=== PATIENT | male | born 1995 | race Asian ===

== ENCOUNTER 2017-03-04 17:12 | Inpatient (IN) | payer OTHER ==
[~2017-03-04] VITALS: Ht 167.6 cm; Wt 55.6 kg
[2017-03-04] MEDS ORDERED: PIPER-TAZO 3.375 GM IV (PMX) 100 ML IVPB STA (18:29)
[2017-03-04] MEDS ORDERED: VANCOMYCIN 1 GM (PMX) 250 ML IVPB ONE (18:30)
[2017-03-04 19:22] LABS: ADD SCAN DIFF NO
[2017-03-04 19:23] LABS: BASOPHILS % 0.3 % (0.0-2.0); EOSINOPHILS # 0.2 10^3/ul (0.0-0.5); EOSINOPHILS % 1.7 % (0.0-7.0); HEMATOCRIT 51.1 % (42.0-52.0); LYMPHOCYTES # 2.3 10^3/ul (0.8-2.9); LYMPHOCYTES % 20.1 % (18.0-55.0); MEAN CORPUSCULAR HEMOGLOBIN 29.9 pg (29.0-33.0); MEAN CORPUSCULAR HGB CONC 33.3 g/dl (32.0-37.0); MEAN PLATELET VOLUME 9.6 fl (7.4-10.4); MONOCYTE # 0.9 10^3/ul (0.3-0.9); MONOCYTES % 7.5 % (0.0-13.0); NEUTROPHIL # 7.8 10^3/ul (1.6-7.5); NEUTROPHILS % 69.2 % (30.0-74.0); PLATELET COUNT 274 10^3/UL (140-415); RED BLOOD COUNT 5.68 10^6/ul (4.70-6.10); RED CELL DISTRIBUTION WIDTH 10.9 % (11.5-14.5); WHITE BLOOD COUNT 11.3 10^3/ul (4.8-10.8)
[2017-03-04] MEDS ORDERED: AMOX1TAB9 PO (19:25)
[2017-03-04] MEDS ORDERED: MUPI15CR9 TOP (19:25)
[2017-03-04] MEDS ORDERED: IBUP800T25 PO (19:26)
[2017-03-04 20:06] LABS: POTASSIUM 3.9 mmol/L (3.5-5.1)
[2017-03-04 20:09] LABS: CALCIUM 9.6 mg/dl (8.4-10.2); CREATININE 0.66 mg/dl (0.61-1.24)
[2017-03-04] MEDS ORDERED: ONDANSETRON 4 MG INJ IV PRN (20:30)
[2017-03-04] MEDS ORDERED: ACETAMINOPHEN 325 MG TAB PO PRN ×2 (20:30→23:30)
[2017-03-04] MEDS ORDERED: SOD CHLORIDE 0.9% 1,000 ML IV ONE (20:30)
--- NOTE | 2017-03-04 20:46 | ERD ---
ER Documentation Chief Complaint Date/Time DATE: 03/04/17 TIME: 20:44 Chief Complaint LEFT SHOULDER ABSCESS TO LEFT SHOULDER HPI Is a 21-year-old male presents for painful redness and skin defect to his left shoulder. This is been going on for a couple weeks now and is getting worse. He has failed outpatient treatment with Bactrim followed by Augmentin. He has no history of immunosuppression is supposedly up-to-date on his vaccinations and does not have diabetes. He has had no fevers currently. ROS All systems reviewed and are negative except as per history of present illness. Medications Home Meds Reported Medications Ibuprofen* (Ibuprofen*) 800 Mg Tab, 800 MG PO Q8H Y for PAIN, TAB 03/04/17 Mupirocin Calcium* (Mupirocin*) 2% - 15 Gram Cream..g., 1 APPLIC TOP DAILY, #1 TUB 03/04/17 Amoxicillin/Potassium Clav (Amox-Clav 500-125 mg Tablet) 500-125 mg Tab, 1 TAB PO TID for 30 Days, TAB 03/04/17 Allergies Allergies: Coded Allergies: No Known Allergy (Unverified , 03/04/17) PMhx/Soc Medical and Surgical Hx: pt denies Medical Hx, pt denies Surgical Hx History of Surgery: No Anesthesia Reaction: No Hx Neurological Disorder: No Hx Respiratory Disorders: No Hx Cardiac Disorders: No Hx Psychiatric Problems: No Hx Miscellaneous Medical Probl: No Hx Alcohol Use: No Hx Substance Use: No Hx Tobacco Use: No Smoking Status: Never smoker Physical Exam Vitals Vital Signs Date Time Temp Pulse Resp B/P Pulse Ox O2 Delivery O2 Flow Rate FiO2 03/04/17 17:14 98.3 100 18 124/75 98 Physical Exam Const: [] No distress Eyes: Normal Conjunctiva ENT: Normal External Ears, Nose and Mouth. Neck: Full range of motion..~ No meningismus. Resp: Clear to auscultation bilaterally Cardio: Regular rate and rhythm, no murmurs Abd: Soft, non tender, non distended. Normal bowel sounds Skin: No petechiae or rashes Ext: No cyanosis, left shoulder with approximately 4 x 4 centimeter area of skin defect with purulent material. There is also approximately 2 cm of surrounding erythema and calor. Distal pulses are intact. Patient has minimal skin pain on movement of shoulder motion with no impingement of full range of motion. Is also a white creamy substance in the family states they applied a cream. Neur: Awake and alert and oriented 3, no focal deficits Psych: Normal Mood and Affect Result Diagram: 03/04/17184803/04/171848 Results 24 hrs Laboratory Tests Test 03/04/17 18:49 White Blood Count 11.310^3/ul Red Blood Count 5.6810^6/ul Hemoglobin 17.0g/dl Hematocrit 51.1% Mean Corpuscular Volume 90.0fl Mean Corpuscular Hemoglobin 29.9pg Mean Corpuscular Hemoglobin Concent 33.3g/dl Red Cell Distribution Width 10.9% Platelet Count 95261^3/UL Mean Platelet Volume 9.6fl Neutrophils % 69.2% Lymphocytes % 20.1% Monocytes % 7.5% Eosinophils % 1.7% Basophils % 0.3% Nucleated Red Blood Cells % 0.0/100WBC Neutrophils # 7.810^3/ul Lymphocytes # 2.310^3/ul Monocytes # 0.910^3/ul Eosinophils # 0.210^3/ul Basophils # 0.010^3/ul Nucleated Red Blood Cells # 0.010^3/ul Sodium Level 143mmol/L Potassium Level 3.9mmol/L Chloride Level 98mmol/L Carbon Dioxide Level 29mmol/L Anion Gap 20 Blood Urea Nitrogen 10mg/dl Creatinine 0.66mg/dl Glucose Level 87mg/dl Calcium Level 9.6mg/dl Current Medications Medications (Trade) Dose Ordered Sig/Danyelle Route PRN Reason Start Time Stop Time Status Last Admin Dose Admin Vancomycin HCl 250 ml @ 125 mls/hr ONCE ONCE IVPB 03/04/17 18:30 03/04/17 20:29 DC Piperacillin Sod/ Tazobactam Sod 100 ml @ 200 mls/hr ONCE STAT IVPB 03/04/17 18:29 03/04/17 18:58 DC 03/04/17 19:46 Sodium Chloride (NS) 1,000 ml @ 1,000 mls/hr Q1H ONCE IV 03/04/17 20:30 03/04/17 21:29 Ondansetron HCl (Zofran Inj) 4 mg BRIDGE ORDER PRN IV NAUSEA AND/OR VOMITING 03/04/17 20:30 03/05/17 20:29 Acetaminophen (Tylenol Tab) 650 mg ER BRIDGE PRN PO MILD PAIN/FEVER 03/04/17 20:30 03/05/17 20:29 Procedures/MDM This serious shoulder infection that is failed outpatient treatment was appropriate with 2 different antibiotics. Infection is already expanding on deep tissue. The child may be admitted for IV antibiotics and will prevent limb dysfunction or loss or progression to sepsis. He was given vancomycin and Zosyn the emergency room as well as a liter of IV fluid. Currently appears well and there are no signs of sepsis. Spoke with Dr. Farr who will be admitting the suggested a CT to look for any joint involvement. There was none on the physical exam currently but I have ordered this study as it is a good idea. CT of left shoulder with contrast: Pending, please see report Departure Diagnosis: Primary Impression: Abscess Additional Impressions: Cellulitis of left arm Failure of outpatient treatment Condition: TIBURCIO Espana DO March 04, 2017 20:46
[2017-03-04] MEDS ORDERED: IOHEXOL 300MG/ML 150 ML BTL ONE (20:58)
[2017-03-04] MEDS ORDERED: SOD CHLORIDE 0.9% 100 ML ONE (20:58)
--- NOTE | 2017-03-04 21:55 | RADRPT ---
PROCEDURE: CT left shoulder with contrast CLINICAL INDICATION: Deep shoulder abscess, check for joint involvement. TECHNIQUE: A CT of the left shoulder was performed with intravenous contrast. 85 cc Omnipaque-300 were administered intravenously without complication. Coronal and sagittal reformats were generate d. CTDIvol: 22.36 mGy. DLP: 433.14 mGy-cm. COMPARISON: None. FINDINGS: There is a skin defect overlying the acromion process. Diffuse skin thickening and subcutaneous fat infiltration are noted along the shoulder. The underlying muscular structures have a normal CT harini earance. No soft tissue gas or abscess is identified. No shoulder joint effusion is identified. The re is no cortical lucency or periosteal reaction to suggest osteomyelitis. No fracture or dislocatio n is seen. Bone mineralization is normal and there is no suspicious osseous lesion. IMPRESSION: 1. Skin defect overlying the acromion process. 2. Diffuse skin thickening and subcutaneous fat infiltration along the shoulder, possibly representi ng cellulitis. 3. No CT evidence of abscess, necrotizing fasciitis, osteomyelitis, or a joint effusion. 4. The left shoulder soft tissues could be further evaluated with contrast enhanced MRI if clinicall y warranted. RPTAT: HTAR .Harlan Segovia MD, Date Time Electronically viewed and signed by .Harlan Segovia MD, on 03/04/2017 21:55 .R/
[2017-03-04 23:14] VITALS: Ht 167.6 cm; Wt 55.6 kg
[2017-03-04] MEDS ORDERED: VANCOMYCIN IV PER PHARMACY XX SCH (23:30)
[2017-03-04] MEDS ORDERED: ZOLPIDEM 5 MG TAB PO PRN (23:30)
[2017-03-04] MEDS ORDERED: HYDROCODONE/APAP (5/325) TAB PO PRN (23:30)
[2017-03-04 23:49] VITALS: BP 136/80; PULSE 70; RESP 18
[2017-03-05] MEDS: PIPER-TAZO 3.375 GM IV (PMX) 100 ML IVPB SCH ×3 (00:31→11:34)
[2017-03-05 06:12] LABS: ADD SCAN DIFF NO
[2017-03-05] MEDS: VANCOMYCIN 1 GM in NS 250 ML IVPB SCH ×3 (06:15→22:38)
[2017-03-05 06:19] LABS: BASOPHILS % 0.3 % (0.0-2.0); EOSINOPHILS # 0.4 10^3/ul (0.0-0.5); HEMATOCRIT 46.6 % (42.0-52.0); HEMOGLOBIN 15.3 g/dl (14.0-18.0); LYMPHOCYTES # 3.3 10^3/ul (0.8-2.9); MEAN CORPUSCULAR HEMOGLOBIN 29.8 pg (29.0-33.0); MEAN CORPUSCULAR HGB CONC 32.8 g/dl (32.0-37.0); MEAN CORPUSCULAR VOLUME 90.7 fl (72.0-104.0); MEAN PLATELET VOLUME 9.7 fl (7.4-10.4); MONOCYTE # 1.2 10^3/ul (0.3-0.9); MONOCYTES % 9.8 % (0.0-13.0); NEUTROPHIL # 7.1 10^3/ul (1.6-7.5); NEUTROPHILS % 58.3 % (30.0-74.0); PLATELET COUNT 239 10^3/UL (140-415); RED BLOOD COUNT 5.14 10^6/ul (4.70-6.10); RED CELL DISTRIBUTION WIDTH 10.8 % (11.5-14.5); WHITE BLOOD COUNT 12.2 10^3/ul (4.8-10.8)
[2017-03-05 06:47] LABS: ALBUMIN 3.6 g/dl (3.3-4.9); ALBUMIN/GLOBULIN RATIO 1.24; CALCIUM 9.1 mg/dl (8.4-10.2); CREATININE 0.72 mg/dl (0.61-1.24); POTASSIUM 4.1 mmol/L (3.5-5.1); TOTAL PROTEIN 6.5 g/dl (6.1-8.1)
[2017-03-05 07:41] VITALS: BP 110/56; RESP 16
--- NOTE | 2017-03-05 18:25 | HP ---
DATE OF ADMISSION: 03/04/2017 CHIEF COMPLAINT ON ADMISSION: Left shoulder wound. HISTORY OF PRESENT ILLNESS: This is a 21-year-old male who was in his usual state of health until r ecently when he started having a pimple on his left shoulder area. The patient did pop the pimple. Subsequently, it got infected and started showing signs of cellulitis and also with edema and possi edna an abscess formation. He went to a clinic approximately 5 days ago this past Thursday. He was seen there, started on Bactrim, and had incision and drainage of the cellulitic area with abscess. The patient stayed on Bactrim and 48 hours later he did follow up at the clinic this past Thursday and at that time, he was found to have purulent discharge from the wound. The wound was again cleaned. His antibiotics were changed to Augmentin at that time. The patient was maintained on Augmentin. He still noted purulent discharge from it and pictures were taken, and definitely he had some purul ence and tissue that was again cleaned on Thursday at urgent care. At that time, he was told to stay on Augmentin. There was still significant purulent discharge and necrotic tissue noted when celeste solano followed up on Thursday at the urgent care. At that time, they directed him to the emergency dep artment for IV antibiotics and further evaluation. In the ER, the patient was started on vancomycin and Zosyn. His white count was slightly elevated a t 11.2. Due to concern for deep tissue infection, he was admitted to a medical/surgical bed. He chavarria s been started on IV vancomycin and Zosyn at this point. The wound has been cleaned. It looks antony n currently. He had a CAT scan of the left shoulder and there are no pockets of abscess left. It h as been draining at this point. Wound care is ordered. His antibiotics will be adjusted to vancomy arlen and Levaquin, which would cover for MRSA and other gram-negatives and anaerobes. Wound culture was taken in the emergency department apparently and also at the urgent care. We will follow up on the urgent care wound culture and the emergency department for further antibiotic adjustment, but it is my suspicion that the patient will need at least MRSA coverage with vancomycin. He is afebrile. No nausea, no vomiting. He is doing fairly well clinically. The cellulitic area on the left shou lder wound is decreased. There is less tenderness to palpation and it looks much better according t o the patient and his family. ALLERGIES: NO KNOWN ALLERGIES. PAST MEDICAL HISTORY: None. PAST SURGICAL HISTORY: None. SOCIAL HISTORY: The patient lives with his family. He just moved to the [place] recently fro the [facility]. He does not smoke, drink alcohol or use any drugs. REVIEW OF SYSTEMS: As per HPI. The patient denies any other systemic symptoms. He denies any card iopulmonary, genitourinary or neurological deficits. OUTPATIENT MEDICATIONS: Prior to admission, the patient was on: 1. Augmentin 1 tab p.o. t.i.d. 2. Ibuprofen 800 mg p.o. q.8h. p.r.n. pain. 3. Mupirocin. PHYSICAL EXAMINATION: VITAL SIGNS: Temperature is 98.2, heart rate is 58 to 100, blood pressure 110/56, the patient is sa turating 96% on room air. GENERAL: He is alert and oriented x4. He is not in acute distress. He is doing really well. HEENT: Pupils are equally round and reactive to light. Extraocular muscles are intact. Anicteric sclerae. NECK: No JVD, no thyromegaly noted. HEART: Regular rate and rhythm. No murmur. No murmur, rubs or gallops. LUNGS: Clear to auscultation bilaterally. ABDOMEN: Soft, nontender, nondistended. Bowel sounds are present. EXTREMITIES: No edema, clubbing or cyanosis. SKIN: Left shoulder area, he does have a 2 x 2 cm open wound which was recently debrided. There ar e no signs of purulence currently. It has been just cleaned. The margins of the wound are less eryt hematous, less edematous at this point. It has been improving according to the family. The area of the incision and debridement is probably again 2 x 2 cm with 0.5 cm depth at most. LABORATORY DATA: White blood cell count 12.2, hemoglobin 15.3, hematocrit 46.6, platelet count of 2 39. Chemistry with a sodium of 140, potassium 4.1, chloride 105, bicarbonate 26, BUN 10, creatinin e 0.72, calcium of 9.1. LFTs are within normal. Cholesterol 102, LDL 65. IMAGING: CAT scan of the left shoulder with contrast did show skin defect overlying the acromial pr ocess which is the area that was debrided, diffuse skin thickening and subcutaneous fat infiltration along the shoulder consistent with cellulitis. No CT evidence of abscess, necrotizing fasciitis, o steomyelitis or joint effusion. ASSESSMENT AND PLAN: This is a 21-year-old with: 1. Left shoulder wound status post incision and debridement at a local clinic. Actually, the the [facility] area looks pretty healthy currently post-cleaning the wound. Continue IV antibiotics. Wound ca re has been ordered for further recommendation. We are waiting on the cultures. For now, keep him on vancomycin and Levaquin and I already have discussed with the family the possibility of putting a PICC line for IV vancomycin as my suspicion is this may be MRSA. It would be beneficial for the pa tient to remain on IV antibiotics given the wound that he has. 2. Prophylaxis. The patient is tolerating p.o. well. He is ambulatory. DISPOSITION: Follow up on wound cultures, adjust antibiotics as needed. Hopefully, discharge plann ing in the next 48 hours. Dictated By: JESSY MCGRAW/TARA Conf#: [id number] DID#: [id number]
[2017-03-05] MEDS: LEVOFLOXACIN 750MG/D5W (PMX) 150 ML IVPB SCH (18:48)
[2017-03-05 20:14] VITALS: BP 121/78; RESP 17
[2017-03-06 06:03] LABS: ADD SCAN DIFF NO
[2017-03-06] MEDS: VANCOMYCIN 1.25 GM in SOD CHLORIDE 0.9% 250 ML IVPB SCH ×2 (06:08→14:54)
[2017-03-06 06:10] LABS: BASOPHIL # 0.1 10^3/ul (0.0-0.1); BASOPHILS % 0.5 % (0.0-2.0); EOSINOPHILS # 0.3 10^3/ul (0.0-0.5); EOSINOPHILS % 2.4 % (0.0-7.0); HEMATOCRIT 47.5 % (42.0-52.0); HEMOGLOBIN 16.1 g/dl (14.0-18.0); LYMPHOCYTES % 26.1 % (18.0-55.0); MEAN CORPUSCULAR HEMOGLOBIN 30.4 pg (29.0-33.0); MEAN CORPUSCULAR HGB CONC 33.9 g/dl (32.0-37.0); MEAN CORPUSCULAR VOLUME 89.6 fl (72.0-104.0); MEAN PLATELET VOLUME 9.1 fl (7.4-10.4); MONOCYTE # 1.1 10^3/ul (0.3-0.9); MONOCYTES % 9.6 % (0.0-13.0); NEUTROPHIL # 6.8 10^3/ul (1.6-7.5); NEUTROPHILS % 59.1 % (30.0-74.0); PLATELET COUNT 257 10^3/UL (140-415); RED CELL DISTRIBUTION WIDTH 10.8 % (11.5-14.5); WHITE BLOOD COUNT 11.4 10^3/ul (4.8-10.8)
[2017-03-06 06:49] LABS: CALCIUM 9.6 mg/dl (8.4-10.2); CREATININE 0.7 mg/dl (0.61-1.24); POTASSIUM 3.8 mmol/L (3.5-5.1)
[2017-03-06 07:52] VITALS: BP 103/62; RESP 18
[2017-03-06] MEDS ORDERED: LIDOCAINE 1% (MPF) 5 ML VIAL SC ONE (14:30)
--- NOTE | 2017-03-06 14:34 | PN ---
Date/Time of Note Date/Time of Note DATE: 03/06/17 TIME: 14:09 Assessment/Plan VTE Prophylaxis VTE Prophylaxis Intervention: ambulation, SCD's Lines/Catheters IV Catheter Type (from Nrsg): Saline Lock Assessment/Plan Assessment/Plan 21-year-old with: 1. Left shoulder wound status post incision and debridement at a local clinic. Wound care recommendation noted Will discharge home with Home Health wound care and home health for IV abx today Follow up on wound cultures as outpatient, but given severity of infection will d/c home with home health and wound care and also IV abx PICC line ordered Prophylaxis: The patient is tolerating p.o. well. He is ambulatory. DISPOSITION: Follow up on wound cultures, d/c home with Home health for wound care and IV abx. Subjective 24 Hr Interval Summary Free Text/Dictation Patient remains stable and will plan from d/c home with Iv Vanco and po Levaquin x 10 days Exam/Review of Systems Vital Signs Vitals Vital Signs Date Time Temp Pulse Resp B/P Pulse Ox O2 Delivery O2 Flow Rate FiO2 03/06/17 07:52 98.7 61 18 103/62 97 03/04/17 23:49 Room Air Intake and Output 03/05/17 03/05/17 03/06/17 15:00 23:00 07:00 Intake Total 245 ml 1120 ml 1330 ml Balance 245 ml 1120 ml 1330 ml Exam Constitutional: alert, oriented, well developed Respiratory: clear to auscultation, normal air movement Cardiovascular: nl pulses, regular rate and rhythm Gastrointestinal: non-tender, soft Musculoskeletal: nl extremities to inspection Extremities: normal pulses Neurological: SENIOR TECHNICAL RECRUITER II-XII intact, nl mental status, nl speech, nl strength Skin: other (left shouder wound healing but also found to have 1 cm tunelling ) Results Result Diagram: 03/06/17 0520 03/06/17 0520 Results 24 hrs Laboratory Tests Test 03/05/17 21:37 03/06/17 05:20 Vancomycin Level Trough 7.3 L White Blood Count 11.4 H Red Blood Count 5.30 Hemoglobin 16.1 Hematocrit 47.5 Mean Corpuscular Volume 89.6 Mean Corpuscular Hemoglobin 30.4 Mean Corpuscular Hemoglobin Concent 33.9 Red Cell Distribution Width 10.8 L Platelet Count 257 Mean Platelet Volume 9.1 Neutrophils % 59.1 Lymphocytes % 26.1 Monocytes % 9.6 Eosinophils % 2.4 Basophils % 0.5 Nucleated Red Blood Cells % 0.0 Neutrophils # 6.8 Lymphocytes # 3.0 H Monocytes # 1.1 H Eosinophils # 0.3 Basophils # 0.1 Nucleated Red Blood Cells # 0.0 Sodium Level 139 Potassium Level 3.8 Chloride Level 103 Carbon Dioxide Level 29 Anion Gap 11 Blood Urea Nitrogen 12 Creatinine 0.70 Glucose Level 96 Calcium Level 9.6 Magnesium Level 1.9 Medications Medications Current Medications Acetaminophen (Tylenol Tab) 650 mg Q4H PRN PO PAIN AND OR ELEVATED TEMP; Start 03/04/17 at 23:30 Acetaminophen/ Hydrocodone Bitart ([place] (5/325)) 1 tab Q4H PRN PO pain; Start 03/04/17 at 23:30 Zolpidem Tartrate 5 mg 5 mg HS PRN PO INSOMNIA; Start 03/04/17 at 23:30 Levofloxacin/ Dextrose 150 ml @ 100 mls/hr Q24H IVPB Last administered on 03/05 18:48; Admin Dose 100 MLS/HR; Start 03/05/17 at 18:15 Vancomycin HCl/ Sodium Chloride (Vancocin/NS) 250 ml @ 83.333 mls/ hr Q8H IVPB Last administered on 03/06/17 06:08; Admin Dose 83.333 MLS/HR; Start at 06:30 Miscellaneous Information (*Rx Drug Level Order Reminder*) VANCO TROUGH @ 1, 330 ON... ONCE ONCE XX ; Start 03/07/17 at 13:30; Stop 03/07/17 at 13:31 JESSY HEADLEY March 06, 2017 14:20
--- NOTE | 2017-03-06 14:44 | PDOCDIS ---
Discharge Instructions CONDITION Patient Condition: Good HOME CARE INSTRUCTIONS: Diet Instructions: Regular ACTIVITY: Activity Restrictions: Do not operate Machinery Do not operate Power Tool Avoid Heavy Housework FOLLOW UP/APPOINTMENTS Appointments Follow up with PCP within 1 week Follow up with Home Health services for wound care and IV abx OTHER ORDERS: Other Orders: Per oyster grader instruction, for daily wound care use: Plain packing strip to tunnelled area then cover with Melgisorb Ag daily SCHOOL/WORK RELEASE May return to School/Work on: March 17, 2017 JESSY HEADLEY March 06, 2017 14:44
[2017-03-06] MEDS ORDERED: ACID1TAB14 PO (14:47)
[2017-03-06] MEDS ORDERED: VANC1.5P12 IV (14:47)
[2017-03-06] MEDS ORDERED: LEVO750T25 PO (14:47)
[2017-03-06 15:31] LABS: INR 0.93; PROTIME 12.5 Sec (12.2-14.2)
[2017-03-06 15:32] LABS: PARTIAL THROMBOPLASTIN TIME 33.1 Sec (25.0-35.0)
[2017-03-06] MEDS ORDERED: L ACIDOPHIL/B LACTIS/B LONGUM CAPSULE PO SCH (16:00)
[2017-03-06] MEDS: LEVOFLOXACIN 750MG/D5W (PMX) 150 ML IVPB SCH (19:02)
[2017-03-06 19:52] VITALS: BP 125/70; RESP 20
== END 2017-03-06 21:30 | disposition home health service (06) | DRG 603 ==
LOC: FTE 17:12 → MS2 20:28
PROVIDERS: ADMIT Internal Medicine; ATTEND Internal Medicine
DX: L02.414 Cutaneous abscess of left upper limb (principal)
CPT/HCPCS: 36415; 73200; 80048; 80053; 80061; 80202; 83735; 85025; 85610; 85730; 87040; 96365; 96367; J1956; J2543; J3370; J7030; J7050; Q9967